=== PATIENT | male | born 1960 | race Caucasian/White ===

== ENCOUNTER 2016-10-19 00:57 | Emergency (ER) | payer MEDICARE ==
[~2016-10-19] VITALS: Ht 180.3 cm; Wt 78.0 kg
[~2016-10-19 00:57] MED LIST: B COTAB3 PO; CHELATION PO; COQ10 PO; CORTIS10A AD; FISH1000 PO; TAB-TAB PO; VITA100T15 PO; VITA400C28 PO; VITA400C70 PO; VITA500L4 PO
[2016-10-19 00:59] VITALS: BP 116/97; PULSE 75; RESP 16; TEMP 98; O2SAT 99
[2016-10-19] MEDS ORDERED: DESO5TAB PO (01:28)
--- NOTE | 2016-10-19 02:09 | PD ---
HPI Chief Complaint: Skin Problem Time Seen by Provider: 01:58 Travel History International Travel<30 days: No Contact w/Intl Traveler<30days: No Traveled to known affect area: No History of Present Illness HPI 56-year-old male complains of painful rash on the right foot. Patient states that he probably got bitten by an insect 2 days ago. Patient was seen at local clinic [facility] and was given TD booster and prescription for antibiotic doxycycline. Patient states that he went to the pharmacy and was closed. Patient is here requesting evaluation and first dose of antibiotic. Patient denies any headache. Patient denies any chest pain or short as of breath. Patient denies abdominal pain. Patient denies any other problem. PFSH Past Medical History Gastrointestinal Disorders: Yes (CONSITIPATION) Medical other: Yes (SICK SINUS SYNDROME, FIBROMYALGIA) Neurologic: Yes (TBI) Psychiatric: Yes (PTSD) Tetanus Vaccination: < 5 Years Influenza Vaccination: No Past Surgical History Cardiac Surgery: Yes (PACEMAKER INSERTION) Social History Alcohol Use: No Tobacco Use: Yes Substance Use: No Allergies-Medications (Allergen,Severity, Reaction): Coded Allergies: Quinolones (Verified Allergy, Severe, Arrhythmias, , 10/19/16) Sulfa (Verified Allergy, Severe, 10/19/16) Uncoded Allergies: FLOROQUINOLONES (Allergy, Severe, 02/14/10) Reported Meds & Prescriptions Reported Meds & Active Scripts Active Reported Desoxyn (Methamphetamine HCl) 5 Mg Tab 5 Mg PO TID Review of Systems General / Constitutional: No: Fever Eyes: No: Visual changes HENT: No: Headaches Cardiovascular: No: Chest Pain or Discomfort Respiratory: No: Shortness of Breath Gastrointestinal: No: Abdominal Pain Genitourinary: No: Dysuria Musculoskeletal: No: Pain Skin: No Rash Neurologic: No: Weakness Psychiatric: No: Depression Endocrine: No: Polydipsia Hematologic/Lymphatic: No: Easy Bruising Physical Exam Narrative GENERAL: Well-nourished, well-developed patient. SKIN: Focused skin assessment warm/dry. HEAD: Normocephalic. EYES: No scleral icterus. No injection or drainage. NECK: Supple, trachea midline. No JVD or lymphadenopathy. CARDIOVASCULAR: Regular rate and rhythm without murmurs, gallops, or rubs. RESPIRATORY: Breath sounds equal bilaterally. No accessory muscle use. GASTROINTESTINAL: Abdomen soft, non-tender, nondistended. MUSCULOSKELETAL: No cyanosis, or edema. BACK: Nontender without obvious deformity. No CVA tenderness. Patient has a blister lesion on the medial aspect of the right foot over the arch area. No redness no heat no discharge noted. Data Data Last Documented VS Vital Signs Date Time Temp Pulse Resp B/P Pulse Ox O2 Delivery O2 Flow Rate FiO2 10/19/16 01:23 18 10/19/16 00:59 98.0 75 116/97 99 Room Air MDM Medical Decision Making Medical Screen Exam Complete: Yes Emergency Medical Condition: Yes Differential Diagnosis Differential diagnosis including insect bite, burn, shingles. Narrative Course 56-year-old male with blister lesion right foot. Possible insect bite. Doxycycline 100 mg by mouth given now. Patient has prescription for doxycycline already. Diagnosis Primary Impression: Insect bite of right foot Qualified Code: S90.861A - Insect bite of right foot, initial encounter Patient Instructions: General Instructions Additional Instructions: Take doxycycline as directed. Wound care daily. Follow-up with personal physician. Return if increasing redness swelling. Med/Other Pt SpecificInfo: No Change to Meds Disposition: 01 DISCHARGE HOME Condition: Stable Jona Hernandez MD Oct 19, 2016 02:09
[2016-10-19] MEDS ORDERED: DOXYCYCLINE HYCLATE 100 MG CAP PO ONE (02:15)
== END 2016-10-19 02:39 | disposition home or self-care (01) ==
LOC: NEPE 00:57
DX: S90.861A Insect bite (nonvenomous), right foot, initial encounter (principal); M79.7 Fibromyalgia; Z72.0 Tobacco use; Z95.0 Presence of cardiac pacemaker; W57.XXXA Bitten or stung by nonvenomous insect and other nonvenomous arthropods, initial encounter; Y93.9 Activity, unspecified; Y92.9 Unspecified place or not applicable; Y99.8 Other external cause status
CPT/HCPCS: 99283

== ENCOUNTER 2016-11-22 15:15 | Inpatient (IN) | payer MEDICARE ==
[~2016-11-22] VITALS: Ht 175.3 cm; Wt 75.1 kg
[~2016-11-22 15:15] MED LIST changes: -B COTAB3 PO; -CHELATION PO; -COQ10 PO; -CORTIS10A AD; +DESO5TAB PO; -FISH1000 PO; -TAB-TAB PO; -VITA100T15 PO; -VITA400C28 PO; -VITA400C70 PO; -VITA500L4 PO
[2016-11-22 15:17] VITALS: BP 138/76; PULSE 80; RESP 20; TEMP 98.2; O2SAT 98
--- NOTE | 2016-11-22 15:32 | PD ---
Physical Exam Time Seen by Provider: 15:28 Narrative 56yo M here to be treated for brown recluse spider bite. Has been seen here ( November 18) and [facility] and is taking Doxycycline and clindamycin for cellulitis x 4 days. Denies fever, vomiting. Says leg swelling had gone down, but wound has gotten worse. Patient seen in triage. VS reviewed. Awaiting bed placement. Data Data Last Documented VS Vital Signs Date Time Temp Pulse Resp B/P Pulse Ox O2 Delivery O2 Flow Rate FiO2 11/22/16 15:17 98.2 80 20 138/76 98 Room Air MDM Supervised Visit with THERESE: Kelli Sanchez Nov 22, 2016 15:32
[2016-11-22] MEDS ORDERED: SODIUM CHLOR 0.9% 1000 ML INJ 1,000 ML IV ONE ×2 (15:48)
[2016-11-22] MEDS ORDERED: SODIUM CHLOR 0.9% 1000 ML INJ 400 ML IV ONE (15:48)
--- NOTE | 2016-11-22 15:55 | PD ---
HPI Chief Complaint: Wound/Suture/Staple Re-Check Time Seen by Provider: 15:37 Travel History International Travel<30 days: No Contact w/Intl Traveler<30days: No Traveled to known affect area: No History of Present Illness HPI This is a 56-year-old male presents for evaluation of right lower extremity infection. Initially the patient sustained a bug bite to his right foot. He believes that it was a spider although he did not see any bugs or spiders bite him. He is was in early October. He was initially placed on a seven-day course of doxycycline and an outside facility. He reports that the symptoms improved but then 2 weeks ago. A piano fell on his right leg and he sustained a blister which popped. Since then he has developed increasing redness and pain on the right lower leg. Pain is a throbbing pain which is constant, worse with walking. He was seen on November 18 at an outside facility and prescribed clindamycin and doxycycline which she has been taking. Symptoms worsened which prompted evaluation. He reports low-grade fevers a few days ago but none since then. Denies nausea, vomiting, myalgias, abdominal pain. He has no other complaints. His primary care physician is in [place]. PFSH Past Medical History Gastrointestinal Disorders: Yes (CONSITIPATION) Neurologic: Yes (TBI) Psychiatric: Yes (PTSD) Past Surgical History Cardiac Surgery: Yes (PACEMAKER INSERTION) Social History Alcohol Use: No Tobacco Use: Yes Substance Use: No Allergies-Medications (Allergen,Severity, Reaction): Coded Allergies: Quinolones (Verified Allergy, Severe, Arrhythmias, , 11/22/16) Sulfa (Verified Allergy, Severe, 11/22/16) Uncoded Allergies: FLOROQUINOLONES (Allergy, Severe, 02/14/10) Reported Meds & Prescriptions Reported Meds & Active Scripts Active Reported [place] (Hydrocodone-Acetaminophen) 7.5-325 mg Tab 1 Tab PO Q4H PRN Desoxyn (Methamphetamine HCl) 5 Mg Tab 5 Mg PO TID Review of Systems Except as stated in HPI: all other systems reviewed are Neg Physical Exam Narrative GENERAL: This is a well-developed well-nourished male in no acute distress SKIN: Warm and dry. Examination of the right lower extremity reveals markedly erythematous induration of the medial right lower leg and foot. There is some ulceration with some serous/bloody drainage on the medial aspect of the right lower leg where the blister previously was present. There is no fluctuance. The area on the medial right foot which was bitten by a bug one month ago has healed. HEAD: Atraumatic. Normocephalic. EYES: Pupils equal and round. No scleral icterus. No injection or drainage. ENT: No nasal bleeding or discharge. Mucous membranes pink and moist. NECK: Trachea midline. No JVD. CARDIOVASCULAR: Regular rate and rhythm. No murmur appreciated. RESPIRATORY: No accessory muscle use. Clear to auscultation. Breath sounds equal bilaterally. GASTROINTESTINAL: Abdomen soft, non-tender, nondistended. Hepatic and splenic margins not palpable. MUSCULOSKELETAL: No obvious deformities. Skin as noted above with some associated lower extremity edema on the right side. There is right-sided inguinal lymphadenopathy which is nontender. NEUROLOGICAL: Awake and alert. No obvious cranial nerve deficits. Motor grossly within normal limits. Normal speech. PSYCHIATRIC: Appropriate mood and affect; insight and judgment normal. Data Data Last Documented VS Vital Signs Date Time Temp Pulse Resp B/P Pulse Ox O2 Delivery O2 Flow Rate FiO2 11/22/16 16:49 62 16 98/57 100 Room Air 11/22/16:17 98.2 Orders Complete Blood Count With Diff (11/22/16 15:48) Comprehensive Metabolic Panel (11/22/16 15:48) Lactic Acid Sepsis Protocol (11/22/16 15:48) Blood Culture (11/22/16 15:48) Wound Culture And Gram Stain (11/22/16 15:48) Blood Glucose (11/22/16 15:48) Ecg Monitoring (11/22/16 15:48) Iv Access Insert/Monitor (11/22/16 15:48) Oximetry (11/22/16 15:48) Oxygen Administration (11/22/16 15:48) Sodium Chlor 0.9% 1000 Ml Inj (Ns 1000 M (11/22/16 15:48) Sodium Chlor 0.9% 1000 Ml Inj (Ns 1000 M (11/22/16 15:48) Sodium Chlor 0.9% 1000 Ml Inj (Ns 1000 M (11/22/16 15:48) Vancomycin Inj (Vancomycin Inj) (11/22/16 16:00) Piperacil-Tazo 3.375 Gm Premix (Zosyn 3. (11/22/16 16:00) Admit Order (Ed Use Only) (11/22/16 17:29) Labs Laboratory Tests Test 11/22/16 16:10 White Blood Count 7.8 TH/MM3 Red Blood Count 4.29 MIL/MM3 Hemoglobin 12.5 GM/DL Hematocrit 38.2 % Mean Corpuscular Volume 89.0 FL Mean Corpuscular Hemoglobin 29.1 PG Mean Corpuscular Hemoglobin 32.7 % Concent Red Cell Distribution Width 13.2 % Platelet Count 315 TH/MM3 Mean Platelet Volume 7.2 FL Neutrophils (%) (Auto) 68.3 % Lymphocytes (%) (Auto) 18.3 % Monocytes (%) (Auto) 11.2 % Eosinophils (%) (Auto) 1.5 % Basophils (%) (Auto) 0.7 % Neutrophils # (Auto) 5.3 TH/MM3 Lymphocytes # (Auto) 1.4 TH/MM3 Monocytes # (Auto) 0.9 TH/MM3 Eosinophils # (Auto) 0.1 TH/MM3 Basophils # (Auto) 0.1 TH/MM3 CBC Comment DIFF FINAL Differential Comment Sodium Level 137 MEQ/L Potassium Level 3.9 MEQ/L Chloride Level 98 MEQ/L Carbon Dioxide Level 32.9 MEQ/L Anion Gap 6 MEQ/L Blood Urea Nitrogen 12 MG/DL Creatinine 0.83 MG/DL Estimat Glomerular Filtration 97 ML/MIN Rate Random Glucose 104 MG/DL Lactic Acid Level 1.9 mmol/L Calcium Level 9.0 MG/DL Total Bilirubin 0.4 MG/DL Aspartate Amino Transf 22 U/L (AST/SGOT) Alanine Aminotransferase 21 U/L (ALT/SGPT) Alkaline Phosphatase 66 U/L Total Protein 6.6 GM/DL Albumin 3.0 GM/DL [facility] Medical Decision Making Medical Screen Exam Complete: Yes Emergency Medical Condition: Yes Medical Record Reviewed: Yes Differential Diagnosis Cellulitis failed outpatient therapy, necrotizing fasciitis, DVT, abscess, osteomyelitis, septic arthritis Narrative Course This is a 56-year-old male who was on a 7 day course of doxycycline 1 month ago for a bug bite medial right foot. A piano fell on his right leg and he sustained a blister to the medial right lower leg 2 weeks ago. He developed a cellulitic infection after that and 4 days ago he was started on doxycycline and clindamycin. He has had worsening cellulitic changes since then. No significant cellulitis which extends from the right foot just distal to the right knee. There is some serous/bloody drainage from the previous blister site on the medial right lower leg which has been cultured. The patient is afebrile and not tachycardic. The plan is for basic lab work, broad-spectrum antibiotics, blood cultures, admission for cellulitis failed outpatient therapy. Diagnosis Primary Impression: Cellulitis of right lower extremity Admitting Information Admitting Physician Requests: it Coy Everett Nov 22, 2016 15:55
[2016-11-22] MEDS ORDERED: HYDR-3288 PO (15:57)
[2016-11-22] MEDS ORDERED: PIPERACIL-TAZO 3.375 GM PREMIX 50 ML IV ONE (16:00)
[2016-11-22] MEDS ORDERED: VANCOMYCIN INJ 1,000 MG in SODIUM CHLOR 0.9% 250 ML INJ 250 ML IV ONE (16:00)
[2016-11-22 16:49] VITALS: BP 98/57; PULSE 62; RESP 16; O2SAT 100
[2016-11-22 16:52] LABS: AUTOMATED NEUTROPHIL # 5.3 TH/MM3 (1.8-7.7); BASOPHIL # 0.1 TH/MM3 (0-0.2); BASOPHIL % 0.7 % (0.0-2.0); EOSINOPHIL # 0.1 TH/MM3 (0-0.4); EOSINOPHIL % 1.5 % (0.0-4.0); HEMATOCRIT 38.2 % (39.0-51.0); HEMO FLAGS DIFF FINAL; LYMPH % 18.3 % (9.0-44.0); LYMPHOCYTE # 1.4 TH/MM3 (1.0-4.8); MEAN CORPUSCULAR HEMOGLOBIN 29.1 PG (27.0-34.0); MEAN CORPUSCULAR HGB CONC 32.7 % (32.0-36.0); MONO % 11.2 % (0.0-8.0); NEUT % 68.3 % (16.0-70.0); PLATELET COUNT 315 TH/MM3 (150-450); RED BLOOD COUNT 4.29 MIL/MM3 (4.50-5.90); RED CELL DISTRIBUTION WIDTH 13.2 % (11.6-17.2); WHITE BLOOD COUNT 7.8 TH/MM3 (4.0-11.0)
[2016-11-22 17:15] LABS: ANION GAP 6 MEQ/L (5-15); AST (GOT) 22 U/L (15-37); BICARBONATE 32.9 MEQ/L (21.0-32.0); BLOOD UREA NITROGEN 12 MG/DL (7-18); CHLORIDE 98 MEQ/L (98-107); GLOMERULAR FILTRATION RATE 97 ML/MIN (>89); POTASSIUM 3.9 MEQ/L (3.5-5.1); SODIUM (NA) 137 MEQ/L (136-145)
[2016-11-22 17:18] LABS: ALKALINE PHOSPHATASE 66 U/L (45-117); ALT (GPT) 21 U/L (12-78); TOTAL BILIRUBIN ADULT 0.4 MG/DL (0.2-1.0)
[2016-11-22] MEDS ORDERED: SODIUM CHLOR 0.9% 1000 ML INJ 1,000 ML IV SCH (17:29)
[2016-11-22] MEDS ORDERED: ACETAMINOPHEN 325 MG TAB PO PRN (17:30)
[2016-11-22] MEDS ORDERED: MAGNESIUM HYDROXIDE SUSP 30 ML CUP PO PRN (17:30)
[2016-11-22] MEDS ORDERED: ONDANSETRON HCL 4 MG/2 ML VIAL IVP PRN (17:30)
[2016-11-22] MEDS ORDERED: LACTULOSE SYRUP 20 GM/30 ML CUP PO PRN (17:30)
[2016-11-22] MEDS ORDERED: ACETAMINOPHEN/HYDROcodone 325 MG/7.5 MG TAB PO PRN (17:30)
[2016-11-22] MEDS ORDERED: SENNOSIDES 8.6 MG TAB PO PRN (17:30)
[2016-11-22] MEDS ORDERED: NALOXONE HCL 0.4 MG/ML AMP IV PRN (17:30)
[2016-11-22] MEDS ORDERED: BISACODYL 10 MG SUPP RECTAL PRN (17:30)
[2016-11-22] MEDS ORDERED: SODIUM CHLORIDE 0.9% FLUSH 10 ML FLUSH IV FLUSH PRN (17:30)
--- NOTE | 2016-11-22 17:40 | HHI.HP ---
HPI Service [facility] Phys[facility] Non-Staff Admission Diagnosis cellulitis failed outpatient therapy Diagnoses: Chief Complaint: right leg infection Travel History International Travel<30 Days: No Contact w/Intl Traveler <30 Da: No Traveled to Known Affected Are: No History of Present Illness Written by Earlene Acosta, acting as scribe for Dr. Avila on 11/22/16 at 17:49. This note was transcribed by scribe Earlene cAosta PA-C. I, Dr. Escobar Avila personally performed the history, physical exam, and medical decision making; and confirmed the accuracy of the information in the transcribed note. Authenticated by Dr. Escobar Avila on 11/22/16 at 19:59. Mr. Leigh is a 56-year-old male with history of chemical brain injury, central pain disorder, PTSD, ADHD, chronic constipation, SSS s/p pacemaker, presents with 2 week history of right leg erythema and edema. The patient reports around the 1st week of October he noticed an insect bite to the right plantar foot that turned into a boil and eventually became infected, treated with doxycycline x7days, and the cellulitis resolved in this area of the foot. However, 2 weeks ago a piano fell onto the right medial distal lower extremity, sustained an injury/laceration, and now he has open wound with worsening surrounding erythema , edema, and pain throughout the right leg. He has been trying to keep the area clean and covered with a dressing. He was seen on 11/18/16 at [facility], prescribed clindamycin and doxycycline which he has been compliant with however symptoms continue to worsen and he started noticing white pus drainage from the wound today. He reports night sweats and chills but no specific fevers. He now has increasing constant throbbing pain throughout the right lower extremity, aggravated by ambulation. He denies any other medical complaints including no chest pain, palpitations, shortness of breath, nausea/ vomiting, diarrhea, or urinary complaints. Review of Systems Except as stated in HPI: all other systems reviewed are Neg Past Family Social History Past Medical History Chemical brain injury PTSD ADHD Chronic constipation Sick Sinus Syndrome Mitochondrial dysfunction Past Surgical History Pacemaker insertion Reported Medications [place] (Hydrocodone-Acetaminophen) 7.5-325 mg Tab 1 Tab PO Q4H PRN Desoxyn (Methamphetamine HCl) 5 Mg Tab 5 Mg PO TID Clinda and Doxy Allergies: Coded Allergies: Quinolones (Verified Allergy, Severe, Arrhythmias, , 11/22/16) Sulfa (Verified Allergy, Severe, 11/22/16) Uncoded Allergies: FLOROQUINOLONES (Allergy, Severe, 02/14/10) Active Ordered Medications Current Medications Medications (Trade) Dose Ordered Sig/Seferino Route Start Time Stop Time Status Last Admin (NS 1000 ml Inj) 1,000 ml @ 100 mls/hr Q10H IV 11/22/16 17:29 UNV (NS Flush) 2 ml UNSCH PRN IV FLUSH 11/22/16 17:30 UNV (NS Flush) 2 ml BID IV FLUSH 11/22/16 21:00 UNV (Tylenol) 650 mg Q4H PRN PO 11/22/16 17:30 UNV (Zofran Inj) 4 mg Q6H PRN IVP 11/22/16 17:30 UNV (Lovenox Inj) 40 mg Q24H SQ 11/22/16 17:30 UNV (Narcan Inj) 0.4 mg UNSCH PRN IV 11/22/16 17:30 UNV (Becca-Colace) 1 tab BID PO 11/22/16 21:00 UNV (Milk Of Magnesia Liq) 30 ml Q12H PRN PO 11/22/16 17:30 UNV (Senokot) 17.2 mg Q12H PRN PO 11/22/16 17:30 UNV (Dulcolax Supp) 10 mg DAILY PRN RECTAL 11/22/16 17:30 UNV (Lactulose Liq) 30 ml DAILY PRN PO 11/22/16 17:30 UNV ([place] 7.5-325 Mg) 1 tab Q6H PRN PO 11/22/16 17:30 UNV Family History Father with Alzheimers, still living age 86 Mother with hypertension Social History Started smoking tobacco 1 year ago Denies any alcohol use Denies any illicit drug use Physical Exam Vital Signs Vital Signs Date Time Temp Pulse Resp B/P Pulse Ox O2 Delivery O2 Flow Rate FiO2 11/22/16 16:49 62 16 98/57 100 Room Air 11/22/16 15:17 98.2 80 20 138/76 98 Room Air Physical Exam GENERAL: Well-nourished, well-developed middle aged male patient in NAD. SKIN: Warm and dry. HEAD: Normocephalic. Atraumatic. EYES: Pupils equal and round. No scleral icterus. No injection or drainage. ENT: No nasal bleeding or discharge. Mucous membranes pink and moist. NECK: Supple. Trachea midline. CARDIOVASCULAR: Regular rate and rhythm. S1, S2 noted. No murmur appreciated. RESPIRATORY: No accessory muscle use. Clear to auscultation. Breath sounds equal bilaterally. GASTROINTESTINAL: Abdomen soft, non-tender, nondistended. Normoactive bowel sounds x4. MUSCULOSKELETAL: No obvious deformities. RLE with significant diffuse 3+ edema, open wound at the medial distal RLE with white purulent drainage and surrounding erythema. No calf tenderness. NEUROLOGICAL: Awake and alert. No obvious cranial nerve deficits. Motor grossly within normal limits. Normal speech. PSYCHIATRIC: Appropriate mood and affect; insight and judgment normal. Laboratory Laboratory Tests Test 11/22/16 16:10 White Blood Count 7.8 Red Blood Count 4.29 Hemoglobin 12.5 Hematocrit 38.2 Mean Corpuscular Volume 89.0 Mean Corpuscular Hemoglobin 29.1 Mean Corpuscular Hemoglobin 32.7 Concent Red Cell Distribution Width 13.2 Platelet Count 315 Mean Platelet Volume 7.2 Neutrophils (%) (Auto) 68.3 Lymphocytes (%) (Auto) 18.3 Monocytes (%) (Auto) 11.2 Eosinophils (%) (Auto) 1.5 Basophils (%) (Auto) 0.7 Neutrophils # (Auto) 5.3 Lymphocytes # (Auto) 1.4 Monocytes # (Auto) 0.9 Eosinophils # (Auto) 0.1 Basophils # (Auto) 0.1 CBC Comment DIFF FINAL Differential Comment Sodium Level 137 Potassium Level 3.9 Chloride Level 98 Carbon Dioxide Level 32.9 Anion Gap 6 Blood Urea Nitrogen 12 Creatinine 0.83 Estimat Glomerular Filtration 97 Rate Random Glucose 104 Lactic Acid Level 1.9 Calcium Level 9.0 Total Bilirubin 0.4 Aspartate Amino Transf 22 (AST/SGOT) Alanine Aminotransferase 21 (ALT/SGPT) Alkaline Phosphatase 66 Total Protein 6.6 Albumin 3.0 Date/Time Procedure Status Source Growth 11/22/16 16:10 Aerobic Blood Culture Received Blood Peripheral Pending 11/22/16 16:10 Anaerobic Blood Culture Received Blood Peripheral Pending 11/22/16 16:05 Gram Stain - Final Resulted Wound Leg 11/22/16 16:05 Wound Culture Resulted Wound Leg Pending Result Diagram: 11/22/16 1610 11/22/16 1610 Assessment and Plan Problem List: (1) Cellulitis of right lower extremity ICD Code: L03.115 Status: Acute Assessment and Plan 56-year-old male with history of chemical brain injury, central pain disorder, PTSD, ADHD, chronic constipation, SSS s/p pacemaker, presents with 2 week history of right leg erythema and edema. RLE Cellulitis, Failed Outpatient Treatment: afebrile, no leukocytosis, lactic acid 1.9, however RLE with significant erythema/edema and open wound with purulent drainage. S/p IV Zosyn and Vanco in the ED. -wound cultures and blood cultures collected -Continue antibiotics with IV Vanco and Zosyn -Pain control with Tylenol and [place] prn -Elevate the RLE -Repeat lactic acid -Continue IVF Hypotension: BP consistently 90s/50s while in the ED. Patient reports low blood pressure at baseline but never this low. -Continue IVF with NS @150cc/hr -avoid antihypertensives All other chronic medical conditions listed above stable, continue home medications as appropriate. DVT Prophylaxis: Lovenox Discussed Condition With Patient, ER JÚNIOR Physician Certification 2 Midnight Certification Type: Admission for Inpatient Services Order for Inpatient Services The services are ordered in accordance with Medicare regulations or non- Medicare payer requirements, as applicable. In the case of services not specified as inpatient-only, they are appropriately provided as inpatient services in accordance with the 2-midnight benchmark. Estimated LOS (days): 3 days is the estimated time the patient will need to remain in the hospital, assuming treatment plan goals are met and no additional complications. Post-Hospital Plan: Home Earlene Acosta PA-C Nov 22, 2016 17:40 Eun Avila DO Nov 22, 2016 19:59
[2016-11-22 17:46] VITALS: BP 95/51; PULSE 71; RESP 16; O2SAT 97
[2016-11-22 18:11] VITALS: BP 114/58; PULSE 67; RESP 19; O2SAT 99
[2016-11-22] MEDS ORDERED: ENOXAPARIN SODIUM 40 MG/0.4 ML SYRINGE SQ SCH (20:00)
[2016-11-22] MEDS ORDERED: Vancomycin Consult Pharmacy 1 EA OTHER SCH (20:00)
[2016-11-22] MEDS ORDERED: DOCUSATE SODIUM 50 MG/SENNA 8.6 MG TAB PO SCH (21:00)
[2016-11-22] MEDS ORDERED: SODIUM CHLORIDE 0.9% FLUSH 10 ML FLUSH IV FLUSH SCH (21:00)
[2016-11-22 21:50] VITALS: BP 113/63; PULSE 63; RESP 17; TEMP 97.2; O2SAT 99
[2016-11-23] MEDS ORDERED: VANCOMYCIN 1,000 MG/NS 250 ML IV ONE ×2
[2016-11-23] MEDS ORDERED: PIPERACIL-TAZO 4.5 GM PREMIX 100 ML IV SCH
--- NOTE | 2016-11-23 00:24 | PD.AMA ---
Against Medical Advice Note Diagnosis: (1) Insect bite of right foot (2) Cellulitis of right lower extremity Discharge Disposition: Against Medical Advice Pt Condition on Discharge: Fair AMA Statement Patient Dejon Leigh has decided to leave the hospital against medical advice. This patient has the capacity to refuse care and understands the risks of leaving, including permanent disability and/or , and has had an opportunity to ask questions about his condition. The patient has been informed that he may return for care at any time, and follow up has been arranged/advised. Patient insisted his Dr. in [place] wanted him to leave and see an infectious disease dr tomorrow. He was instructed we could order a consult, but he did not want to stay. He is A&Ox4 and understands the risks of leaving. Araceli Cerrato Nov 23, 2016 00:24
[2016-11-23] MEDS ORDERED: METHAMPHETAMINE PO SCH (08:00)
== END 2016-11-22 23:53 | disposition left against medical advice (07) | DRG 603 ==
LOC: NEPC 15:15 → NEDA 17:30 → N05A 19:27
PROVIDERS: ADMIT Hospitalist; ATTEND Hospitalist
DX: L03.115 Cellulitis of right lower limb (principal); I95.9 Hypotension, unspecified; F43.10 Post-traumatic stress disorder, unspecified; S90.861A Insect bite (nonvenomous), right foot, initial encounter; W57.XXXA Bitten or stung by nonvenomous insect and other nonvenomous arthropods, initial encounter; K59.09 Other constipation; F90.9 Attention-deficit hyperactivity disorder, unspecified type; F17.210 Nicotine dependence, cigarettes, uncomplicated; Z95.0 Presence of cardiac pacemaker
CPT/HCPCS: 80053; 83605; 84145; 85025; 87040; 87070; 87077; 87186; 96365; 96368; J2543; J3370; J7030; J7050